=== PATIENT | female | born 1945 | race Hispanic/Latino ===

== ENCOUNTER 2024-01-07 19:48 | Emergency (ER) | payer SELFPAY ==
[2024-01-07] MEDS ORDERED: cloNIDine 0.1 MG TAB ONE (20:56)
== END 2024-01-07 22:06 | disposition home or self-care (01) ==
LOC: CSHERS 19:48
DX: I10 Essential (primary) hypertension (principal); E11.9 Type 2 diabetes mellitus without complications; Z79.899 Other long term (current) drug therapy
CPT/HCPCS: 93005; 93010

== ENCOUNTER 2024-01-09 21:44 | Emergency (ER) | payer SELFPAY | END 2024-01-09 22:47 | disposition home or self-care (01) | LOC: CSHERS 21:44 | DX: I10 Essential (primary) hypertension (principal); E11.9 Type 2 diabetes mellitus without complications; Z79.84 Long term (current) use of oral hypoglycemic drugs | CPT/HCPCS: 99283 ==

== ENCOUNTER 2024-01-13 22:20 | Emergency (ER) | payer SELFPAY ==
[2024-01-13] MEDS ORDERED: cloNIDine 0.1 MG TAB ONE (23:14)
== END 2024-01-13 23:58 | disposition home or self-care (01) ==
LOC: CSHERS 22:20
DX: I10 Essential (primary) hypertension (principal); E11.9 Type 2 diabetes mellitus without complications; Z55.6 Problems related to health literacy
CPT/HCPCS: 99283